=== PATIENT | male | born 1980 ===

== ENCOUNTER 2016-12-25 22:01 | Emergency (ER) | payer OTHER ==
[2016-12-25 22:55] VITALS: BP 150/90; TEMP 98.1
--- NOTE | 2016-12-25 23:03 | ED PDOC ---
Arrival/HPI - General Chief Complaint: Male Genitourinary Time Seen by Provider: 12/25/16 23:03 Historian: Patient - History of Present Illness Narrative History of Present Illness (Text): 12/25/16 23:03 Patient was just assigned to his room This 36 yo male with pmh kidney stones, presents to this ED c/o urinary symptoms , dysuria, frequency, urgency x 3 days. Patient stated he developed a left flank pain today. Patient denies fever, hematuria, STD exposure, testicular pain, penile discharge, n/v, or abnormal gait. Time/Duration: Other (see hpi) Context: Home Past Medical History - Provider Review Nursing Documentation Reviewed: Yes - Psychiatric Hx Substance Use: No Family/Social History - Physician Review Nursing Documentation Reviewed: Yes Family/Social History: Other (Non-contributory) Smoking Status: n Hx Alcohol Use: No Hx Substance Use: No Allergies/Home Meds Allergies/Adverse Reactions: Allergies No Known Allergies Allergy (Verified 12/25/16 22:55) Review of Systems - Review of Systems Constitutional: Normal. absent: Fatigue, Weight Change, Fevers Eyes: Normal ENT: Normal Respiratory: Normal Cardiovascular: Normal Gastrointestinal: Abdominal Pain (left flank pain). absent: Nausea, Vomiting Genitourinary Male: Dysuria, Frequency, Other (see hpi). absent: Hematuria Musculoskeletal: Normal. absent: Back Pain Skin: Normal Neurological: Normal. absent: Headache, Dizziness Endocrine: Normal Hemo/Lymphatic: Normal Psychiatric: Normal Physical Exam Vital Signs Temp Pulse Resp BP Pulse Ox 12/26/16 02:57 74 16 100 12/26/16 00:02 78 18 99 12/25/16 22:50 98.1 F 86 18 150/90 99 Temperature: Afebrile Blood Pressure: Normal Pulse: Regular Respiratory Rate: Normal Appearance: Positive for: Well-Appearing, Non-Toxic, Comfortable Pain Distress: None Mental Status: Positive for: Alert and Oriented X 3 - Systems Exam Head: Present: Atraumatic, Normocephalic Pupils: Present: PERRL Extroacular Muscles: Present: EOMI Conjunctiva: Present: Normal Mouth: Present: Moist Mucous Membranes Neck: Present: Normal Range of Motion, Trachea Midline. No: Meningeal Signs Respiratory/Chest: Present: Clear to Auscultation, Good Air Exchange. No: Respiratory Distress, Accessory Muscle Use, Wheezes, Retracting, Rhonchi Cardiovascular: Present: Regular Rate and Rhythm, Normal S1, S2. No: Murmurs Abdomen: Present: Normal Bowel Sounds. No: Tenderness, Distention, Peritoneal Signs, Rebound, Guarding Genitourinary Male: Present: Normal External Genitalia. No: Circumcised Penis, Lesions, Penile Discharge, Testicle Tenderness, Penile Swelling, Masses, Erythema, Hernias, Testicle Swelling Back: Present: Normal Inspection. No: CVA Tenderness Upper Extremity: Present: Normal Inspection, Normal ROM. No: Cyanosis, Edema Lower Extremity: Present: Normal Inspection, Normal ROM. No: Edema Neurological: Present: GCS=15, CN II-XII Intact, Speech Normal Skin: Present: Warm, Dry, Normal Color. No: Rashes Psychiatric: Present: Alert, Oriented x 3, Normal Insight, Normal Concentration Medical Decision Making ED Course and Treatment: 12/26/16 01:24 P Re-evaluation Time: 01:24 Reassessment Condition: Re-examined, Improved - Lab Interpretations Lab Results: Lab Results 12/25/16 00:00: Urine Color Yellow, Urine Appearance Clear, Urine pH 6.0, Ur Specific [place] 1.025, Urine Protein Trace H, Urine Glucose (UA) Negative, Urine Ketones Negative, Urine Blood Large H, Urine Nitrate Negative, Urine Bilirubin Negative, Urine Urobilinogen 1.0 H, Ur Leukocyte Esterase Negative, Urine RBC 25 - 30, Urine WBC 0 - 2, Ur Epithelial Cells 0 - 2, Urine Bacteria Large, Urine Other Mucus - RAD Interpretation Narrative RAD Interpretations (Text): 12/26/16 03:25 [facility] Preliminary Radiology Report Call: [phone] assistance Online chat: [email or web address] Patient Name: CONNOR BENJAMIN FINDINGS: Lower thorax: Mild bilateral lower lobe dependent air space opacity-atelectasis/ scarring. ABDOMEN: Liver: Unremarkable. Gallbladder and bile ducts: Unremarkable. No calcified stones. No ductal dilation. Pancreas: Unremarkable. No ductal dilation. Spleen: Unremarkable. No splenomegaly. Adrenals: Unremarkable. No mass. Kidneys and ureters: Ovoid 3 x 5 mm stone within the left distal ureter almost at the ureterovesicular junction (UVJ). Mild left renal collecting system dilatation and perinephric fat stranding. Stomach and bowel: Unremarkable. No obstruction. No mucosal thickening. Appendix: Visualized portions of appendix appear normal. PELVIS: Bladder: Unremarkable. No stones. Reproductive: Prostate appears within normal limits. ABDOMEN and PELVIS: Intraperitoneal space: Unremarkable. No free air. No significant fluid collection. Bones/joints: No acute fracture. No dislocation. Soft tissues: Unremarkable. Vasculature: Unremarkable. No abdominal aortic aneurysm. Lymph nodes: Unremarkable. No enlarged lymph nodes. IMPRESSION: Ovoid 3 x 5 mm stone within the left distal ureter almost at the ureterovesicular junction (UVJ). Mild left obstructive uropathy and obstructive nephropathy. Thank you for allowing us to participate in the care of your patient. Dictated and Authenticated by: Dayne Florence MD 12/26/2016 2:48 AM Eastern Time ([place] & [place]) Radiology Orders: 12/26/16 00:01 ABD & PELVIS W/O PO OR IV CONT [CT] Stat - Medication Orders Current Medication Orders: Discontinued Medications Cephalexin Monohydrate (Keflex) 500 mg PO STAT STA PRN Reason: Protocol Stop: 12/26/16 01:04 Last Admin: 12/26/16 02:07 Dose: 500 mg Sodium Chloride (Sodium Chloride 0.9%) 1,000 mls @ 999 mls/hr IV .Q1H1M STA Stop: 12/26/16 00:22 Last Admin: 12/25/16 23:57 Dose: 999 mls/hr Ketorolac Tromethamine (Toradol) 15 mg IVP STAT STA Stop: 12/25/16 23:23 Last Admin: 12/25/16 23:57 Dose: 15 mg Tamsulosin HCl (Flomax) 0.4 mg PO STAT STA Stop: 12/26/16 01:04 Last Admin: 12/26/16 02:07 Dose: 0.4 mg Disposition/Present on Arrival - Present on Arrival Any Indicators Present on Arrival: No History of DVT/PE: No History of Uncontrolled Diabetes: No Urinary Catheter: No History of Decub. Ulcer: No History Surgical Site Infection Following: None - Disposition Have Diagnosis and Disposition been Completed?: Yes Diagnosis: Ureterolithiasis Disposition: HOME/ ROUTINE Disposition Time: 01:25 Patient Plan: Discharge Condition: GOOD Discharge Instructions (ExitCare): Kidney Stones (ED), How to Strain Your Urine (ED) Additional Instructions: Call urologist doctor office for follow visit in 2 days. Take medication as instructed. return to emergency if symptoms worsen. Prescriptions: Cephalexin [cephalexin] 500 mg PO BID #14 cap Naproxen 500 mg PO BID PRN #10 tab PRN Reason: Pain, Severe (8-10) oxyCODONE/Acetaminophen [Percocet 5/325 mg Tab] 1 ea PO TID PRN #10 tab PRN Reason: Pain, Severe (8-10) Tamsulosin HCl [Flomax] 0.4 mg PO DAILY #6 cap.er.24h Referrals: Rc Lau MD [Staff Provider] - Follow up with primary Forms: [facility] (Serbian), WORK NOTE
[2016-12-25] MEDS ORDERED: Sodium Chloride 0.9% 1,000 ML IV STA (23:22)
[2016-12-26 00:33] LABS: URINE BILIRUBIN NEGATIVE (NEGATIVE); URINE BLOOD LARGE (NEGATIVE); URINE GLUCOSE (UA) NEGATIVE (NEGATIVE); URINE KETONE NEGATIVE (NEGATIVE); URINE LEUKOCYTE ESTERASE NEGATIVE Leu/uL (NEGATIVE); URINE PROTEIN TRACE mg/dL (<30 mg/dL)
[2016-12-26 00:34] LABS: URINE APPEARANCE CLEAR (CLEAR); URINE COLOR YELLOW (YELLOW)
[2016-12-26 00:50] LABS: URINE BACTERIA LARGE (NEG); URINE EPITHELIAL CELLS 0 - 2 /hpf (0-5); URINE RBC 25 - 30 /hpf (0-2); URINE WBC 0 - 2 /hpf (0-6)
[2016-12-26 02:57] VITALS: PULSE 74; RESP 16; O2SAT 100
--- NOTE | 2016-12-26 08:55 | CT ---
PROCEDURE: CT Abdomen and Pelvis without intravenous contrast HISTORY: left flank pain COMPARISON: None. TECHNIQUE: Without contrast.. Contrast Dose: 0 Radiation dose: Total exam DLP = 499.10 mGy-cm. This CT exam was performed using one or more of the following dose reduction techniques: Automated exposure control, adjustment of the mA and/or kV according to patient size, and/or use of iterative reconstruction technique. FINDINGS: LOWER THORAX: Unremarkable. LIVER: Unremarkable. No gross lesion or ductal dilatation. GALLBLADDER AND BILE DUCTS: Unremarkable. PANCREAS: Unremarkable. No gross lesion or ductal dilatation. SPLEEN: Unremarkable. ADRENALS: Unremarkable. No mass. KIDNEYS AND URETERS: No mass, calculus or hydronephrosis. There is minimal left hydroureter. There is 6 mm calculus at the left ureteral vesical junction. There is no perinephric fluid. VASCULATURE: Unremarkable. No aortic aneurysm. BOWEL: Unremarkable. No obstruction. No gross mural thickening. APPENDIX: Unremarkable. Normal appendix. PERITONEUM: Unremarkable. No free fluid. No free air. LYMPH NODES: Unremarkable. No enlarged lymph nodes. BLADDER: Suboptimally distended REPRODUCTIVE: Normal prostate BONES: No acute fracture. OTHER FINDINGS: None. IMPRESSION: 6 mm calculus at left ureterovesical junction without hydronephrosis or significant hydroureter. No other significant abnormality identified. Preliminary interpretation of this examination was reported by [employer] at 2:48 a.m. on 12/26/2016. There is concurrence of this report with the preliminary interpretation.
== END 2016-12-26 02:57 | disposition home or self-care (01) ==
LOC: ED 22:01
DX: N20.1 Calculus of ureter (principal)
CPT/HCPCS: 74176; 81001; 87086; 96361; 96374; 99283; J1885; J7040